=== PATIENT | male | born 1970 | race Caucasian/White ===

== ENCOUNTER 2024-02-09 09:01 | Emergency (ER) | payer BC, OTHER ==
--- OUTSIDE RECORDS SUMMARY | 2024-02-09 09:03 | XMS REPORT | Continuity of Care Document ---
Author Name Unknown Address [address] [facility] [address] [place] [address] [facility] [address] [facility] [place] [address] Care Team Providers Care Upscale Security Officer Name Role Phone Pcp, Patient Does Not Have A Primary Care Physic khanh Lab, Adc Fam Pob I Attending Clinician Unavailab Mary Guy Attending Clinician [phone] Doctor Unassigned, Victor Attending Clinician U kellyailable Neyda Dumas Attending Clinician [phone] NEYDA STANLEY Attending Clinician Unavailable Payers Payer Name Policy Type Policy Number Effective Date Expirati on Date Source [facility] PPO/POS [id number] 2019 00:00:00 Allergies, Adverse Reactions, Alerts Allergy Name Allergy Type Status Severity Reaction(s) Onset Date Inactive Date Treating Clinician Comments Source NO KNOWN ALLERGIE S Drug Class Active [facility] Social History Social Habit Start Date Stop Date Quantity Comments Source Sexual orientation U [facility] Exposure to SARS-CoV-2 (event) 2019-08-23 00:00:00 2019-09-22 13:02:00 Not sure [facility] Sex Assigned At 1970 00:00:00 1970 00:00:00 [facility] Smoking Status Start Date Stop Date Source Tobacco smoking consumption unknown [facility] Encounters Start Date/Time End Date/Time Encounter Type Admission Type Attending [facility] Care Department Encounter ID Source 2020-03-01 09:20:00 2020-03-01 09:20:00 Outpatient R [facility] [id number] [facility] 2020-03-01 08:58:53 2020-03-01 09:18:53 Laboratory Only Lab, [facility] Pob I [facility] [address] 1..[id number] [facility] 2019-09-23 00:00:00 2019-09-23 00:00:00 Patient Secure Msg Doctor Unassigned, Victor [facility] 1..840.114 [id number] [facility] 2019-09-22 13:01:16 2019-09-22 13:10:43 Laboratory Only Lab, [facility] Brianb Yokasta Hayesthia [facility] [address] 1..[id number] [facility] 2019-09-22 13:00:00 2019-09-22 13:00:00 Outpatient R NEYDA STANLEY [facility] [id number] [facility]
[2024-02-09] MEDS ORDERED: ONDANSETRON 4 MG/2 ML VIAL ONE (09:26)
[2024-02-09] MEDS ORDERED: MORPHINE 4 MG/ML SYR ONE (09:26)
[2024-02-09 09:52] LABS: Absolute Lymphocytes (CBC) 1.3 K/uL (0.7-4.9); Absolute Monocytes 0.6 K/uL (0.1-1.3); Absolute Neutrophil 13.9 K/uL (1.8-8.0); Basophils % 0.3 % (0-1.3); Eosinophils % 0.1 % (0-4.4); Hematocrit 46.2 % (39.6-49.0); Hemoglobin 15.6 g/dL (13.6-17.9); Lymphocytes % 8.5 % (15.3-44.8); MCH 29.3 pg (27.0-35.0); MCHC 33.8 g/dL (32.0-36.0); MCV 86.6 fL (80-100); Monocytes % 3.5 % (3.3-12.3); Neutrophils % 87.6 % (41.7-73.7); Platelets 367 thou/uL (152-406); RBC Red Blood Cell Count 5.34 M/uL (4.33-5.43); Red Cell Distribution Width 13.5 % (12.1-15.2)
[2024-02-09 09:55] LABS: Albumin 4.2 g/dL (3.4-5.0); Albumin/Globulin Ratio 1.1 (1.1-1.8); Anion Gap 10.9 mEq/L (5.0-15.0); Bilirubin Total 0.7 mg/dL (0.2-1.0); Globulin 3.7 g/dL (2.3-3.5); Potassium 3.9 mEq/L (3.5-5.1); Protein, Total 7.9 g/dL (6.4-8.2)
[2024-02-09 10:34] LABS: Blood Morphology Comment NOT SEEN (NOT SEEN); Platelet Estimate ADEQ; White Blood Cell Scan OK (OK)
--- NOTE | 2024-02-09 10:44 | RAD REPORT ---
EXAMINATION: CT ABDOMEN AND PELVIS WITH CONTRAST CLINICAL INDICATION: possible incarcerated hernia;Abd pain TECHNIQUE: CT abdomen and pelvis was performed, after the administration of IV contrast[facility] Axial, sagittal and coronal reconstructions were obtained. One or more of the following dose reduction techniques were used: Automated exposure control, adjustment of the mA and k V according to patient size, and iterative reconstruction. Unless otherwise specified, incidental findings do not require dedicated imaging follow-up. COMPARISON: No prior exam. FINDINGS: LOWER CHEST: The visualized lung bases are clear. LIVER: Normal in size and contour. No focal lesion. Grossly unremarkable gallbladder. SPLEEN: Normal size. No focal lesion. PANCREAS: No mass, ductal dilation, or robert-pancreatic fluid. ADRENALS: Normal; no mass. KIDNEYS: Normal size and contour. No hydronephrosis. GASTROINTESTINAL TRACT: No evidence of free air, significant intra-abdominal free fluid, bowel obstru ction or abscess. There are a few mildly prominent small bowel loops present in the lower abdomen. APPENDIX: Normal appendix. LYMPH NODES: No lymphadenopathy. MUSCULOSKELETAL: No acute or suspicious osseous abnormality. ADDITIONAL FINDINGS: Multiple large fat-containing ventral hernias are seen superior to the umbilicus region. The largest is to the left of midline measuring at most 14 cm. These appear to only contain fat and do not demonstrate features of incarceration currently. IMPRESSION: There are multiple large fat-containing supraumbilical ventral hernias. These do not appear to be inc arcerated currently. There is some tethering anteriorly of small bowel and transverse colon however no bowel involvement is seen in the hernia sacs themselves. There is mildly prominent small bowel loo ps in the lower abdomen seen which do not meet CT criteria for obstruction.
--- NOTE | 2024-02-09 11:11 | EDPHYS ---
Physician Documentation [facility] Name: Haven Dixon Age: 53 yrs Sex: Male : 1970 Arrival Date: 02/09/2024 Time: 09:01 Bed 4 Private MD: ED Physician Nigel Alanis HPI: 02/08 11:08 This 53 yrs old Male presents to ER via Ambulatory with complaints of Abdominal Pain, rn Vomiting. 11:08 The patient presents to the emergency department with nausea, vomiting, abdominal pain. rn Onset: The symptoms/episode began/occurred last night. Possible causes: Hernia. The symptoms are aggravated by nothing. The symptoms are alleviated by nothing. Severity of symptoms: At their worst the symptoms were moderate in the emergency department the symptoms are unchanged. The patient has experienced similar episodes in the past. Patient reports pain at hernia on left side of abdomen with nausea and vomiting and abdominal pain. Began last night. Unable to reduce hernia this morning. Usually able to reduce it. Was not using his binder recently. No blood in stool. No fever. No trauma.. Historical: - Allergies: 09:20 No Known Allergies; kc6 - Home Meds: 09:20 None [Active]; kc6 - PMHx: 09:20 hernia; kc6 - PSHx: 09:20 hernia repair; kc6 - Immunization history:: Adult Immunizations up to date. - Infectious Disease History:: Denies. - Social history:: Smoking status: Patient denies any tobacco usage or history of. - Family history:: not pertinent. - Hospitalizations: : No recent hospitalization is reported. ROS: 11:08 Constitutional: Negative for fever, chills, and weight loss, Abdomen/GI: Positive for rn left-sided abdominal pain and hernia that cannot be reduced Exam: 11:08 Constitutional: This is a well developed, well nourished patient who is awake, alert, rn appears uncomfortable. Abdomen/GI: Soft, moderate-sized left ventral abdominal hernia with tenderness. No overlying skin changes. No peritoneal signs. Vital Signs: 09:19 BP 154 / 74; Pulse 64; Resp 16 S; Temp 98.1(O); Pulse Ox 99% on R/A; Weight 126.1 kg kc6 (R); Height 5 ft. 9 in. (R); Pain 8/10; 11:22 BP 144 / 70; Pulse 60; Resp 15; Pulse Ox 100% ; ko1 09:19 Body Mass Index 41.05 (126.10 kg, 175.26 cm) kc6 09:19 Pain Scale: Adult kc6 Procedures: 09:58 Performed Abdominal hernia reduction. Patient given 4 mg of morphine, placed in rn Trendelenburg position, constant pressure with successful reduction of ventral hernia.. MDM: 09:05 Medical Screening Exam initiated rn 11:08 Differential diagnosis: Nonspecific abd pain, diverticulitis, Bowel obstruction, rn incarcerated hernia, strangulated hernia. Data reviewed: vital signs, nurses notes, lab test result(s), radiologic studies, CT scan, and as a result, I will discharge patient. Counseling: I had a detailed discussion with the patient and/or guardian regarding the historical points, exam findings, and any diagnostic results supporting the discharge/admit diagnosis, lab results, radiology results, the need for outpatient follow up, to return to the emergency department if symptoms worsen or persist or if there are any questions or concerns that arise at home. Response to treatment: the patient's symptoms have markedly improved after treatment, and as a result, I will discharge patient. Special discussion: Based on the patient's Hx, exam, and Dx evaluation, there is no indication for emergent surgery or inpatient Tx. It is understood by the patient/guardian that if the Sx's persist or worsen they need to return immediately for re-evaluation. I discussed with the patient/guardian in detail that at this point there is no indication for admission to the hospital. It is understood, however, that if the symptoms persist or worsen the patient needs to return immediately for re-evaluation. Based on the history and exam findings, there is no indication for further emergent testing or inpatient evaluation. I discussed with the patient/guardian the need to see the general surgeon for further evaluation of the symptoms. ED course: Offered admission to hospital for possible hernia repair, patient declines states he is going to follow-up as an outpatient to try to get all hernias repaired at 1 time given might need an abdominal reconstruction versus doing multiple surgeries at different times. Successful hernia reduction in the emergency room with improvement of symptoms. No indication for emergent admission at this time.. 02/08 09:18 Order name: CBC with Diff; Complete Time: 10:57 rn 02/08 09:18 Order name: CMP; Complete Time: 10:57 rn 02/08 09:18 Order name: Lipase; Complete Time: 10:57 rn 02/08 10:35 Order name: CBC Smear Scan; Complete Time: 10:57 EDMS 02/08 09:18 Order name: CT Abd/Pelvis - IV Contrast Only; Complete Time: 10:57 rn 02/08 09:18 Order name: IV Saline Lock; Complete Time: 09:30 rn 02/08 09:18 Order name: Labs collected and sent; Complete Time: 09:30 rn Administered Medications: 09:31 Drug: Ondansetron IVP 4 mg IVP once; over 2 minutes Route: IVP; Site: right antecubital;kc6 09:46 Follow up: Response: No adverse reaction ko1 09:31 Drug: morphine IVP or IV 4 mg IVP once over 4 mins Route: IVP; Infused Over: 4 mins; kc6 Site: right antecubital; 09:46 Follow up: Response: No adverse reaction ko1 Disposition Summary: 02/09/24 11:11 Discharge Ordered Notes: Location: Home rn Problem: new rn Symptoms: have improved rn Condition: Stable rn Diagnosis - Ventral hernia without obstruction or gangrene rn Followup: rn - With: Private Physician - When: As needed - Reason: Recheck today's complaints, Re-evaluation by your physician Discharge Instructions: - Discharge Summary Sheet rn - Hernia, Adult rn - Ventral Hernia rn Forms: - Medication Reconciliation Form rn - Antibiotic edge burnisher uppers - Prescription Opioid Use rn - Patient Portal Instructions rn - Leadership Thank You Letter rn Signatures: Dispatcher [employer] EDMS Nigel Alanis MD MD rn Campbell, Kaitlyn, RN RN kc6 Yanique Damon RN ko1 Corrections: (The following items were deleted from the chart) 09:18 09:18 CBC+H.LAB.BRZ ordered. EDMS EDMS 09:18 09:18 COMPREHENSIVE METABOLIC PANEL+C.LAB.BRZ ordered. EDMS EDMS 09:18 09:18 LIPASE+C.LAB.BRZ ordered. EDMS EDMS 09:18 09:18 Abdomen Pelvis W Con+CT.RAD.BRZ ordered. EDMS EDMS
--- NOTE | 2024-02-09 11:11 | ER ---
Nurse's Notes [facility] Name: Haven Dixon Age: 53 yrs Sex: Male : 1970 Arrival Date: 02/09/2024 Time: 09:01 Bed 4 Private MD: Diagnosis: Ventral hernia without obstruction or gangrene Presentation: 02/08 09:19 Chief complaint: Patient states: n/v and LLQ pain since 2030 last night. denies kc6 diarrhea. states his last dose of zofran was at 0800 this AM with no relief. Coronavirus screen: At this time, the client does not indicate any symptoms associated with coronavirus-19. Ebola Screen: No symptoms or risks identified at this time. Initial Sepsis Screen: Does the patient meet any 2 criteria? No. Patient's initial sepsis screen is negative. Does the patient have a suspected source of infection? No. Patient's initial sepsis screen is negative. Risk Assessment: Do you want to hurt yourself or someone else? Patient reports no desire to harm self or others. Onset of symptoms was February 08, 2024. 09:19 Method Of Arrival: Ambulatory [facility] 09:19 Acuity: BISI 3 kc6 Historical: - Allergies: 09:20 No Known Allergies; kc6 - Home Meds: 09:20 None [Active]; kc6 - PMHx: 09:20 hernia; kc6 - PSHx: 09:20 hernia repair; kc6 - Immunization history:: Adult Immunizations up to date. - Infectious Disease History:: Denies. - Social history:: Smoking status: Patient denies any tobacco usage or history of. - Family history:: not pertinent. - Hospitalizations: : No recent hospitalization is reported. Screenin:21 [facility] ED Fall Risk Assessment (Adult) History of falling in the last 3 months, kc6 including since admission No falls in past 3 months (0 pts) Confusion or Disorientation No (0 pts) Intoxicated or Sedated No (0 pts) Impaired Gait No (0 pts) Mobility Assist Device Used No (0 pt) Altered Elimination No (0 pt) Score/Fall Risk Level 0 - 2 = Low Risk Oriented to surroundings, Maintained a safe environment. Abuse screen: Denies threats or abuse. Denies injuries from another. Nutritional screening: No deficits noted. Tuberculosis screening: No symptoms or risk factors identified. Assessment: 09:21 General: Appears in no apparent distress. uncomfortable, well groomed, well developed, kc6 Behavior is calm, cooperative, appropriate for age. Pain: Complains of pain in left lower quadrant Pain currently is 8 out of 10 on a pain scale. Pain began 1 day ago. Is continuous. Neuro: Level of Consciousness is awake, alert, obeys commands, Oriented to person, place, time, situation, Appropriate for age. Cardiovascular: Capillary refill < 3 seconds. Respiratory: Airway is patent Trachea midline Respiratory effort is even, unlabored, Respiratory pattern is regular, symmetrical. GI: Abdomen is round Pt is actively vomiting clear fluid, Last BM was February 08, 2024. Bowel sounds present X 4 quads. Abd is soft X 4 quads Abdomen is tender to palpation in left lower quadrant Reports lower abdominal pain, nausea, vomiting, Patient currently denies diarrhea. : No signs and/or symptoms were reported regarding the genitourinary system. EENT: No signs and/or symptoms were reported regarding the EENT system. Derm: Skin is intact, is healthy with good turgor, Skin is diaphoretic, Skin is pale, Skin temperature is cool. Musculoskeletal: No signs and/or symptoms reported regarding the musculoskeletal system. Circulation, motion, and sensation intact. Capillary refill < 3 seconds, Range of motion: intact in all extremities. Vital Signs: 09:19 BP 154 / 74; Pulse 64; Resp 16 S; Temp 98.1(O); Pulse Ox 99% on R/A; Weight 126.1 kg kc6 (R); Height 5 ft. 9 in. (R); Pain 8/10; 11:22 BP 144 / 70; Pulse 60; Resp 15; Pulse Ox 100% ; ko1 09:19 Body Mass Index 41.05 (126.10 kg, 175.26 cm) kc6 09:19 Pain Scale: Adult kc6 ED Course: 09:03 Patient arrived in ED. ra3 09:05 Nigel Alanis MD is Attending Physician. rn 09:19 Clarita Clemente RN is Primary Nurse. kc6 09:20 Triage completed. kc6 09:20 Arm band placed on. kc6 09:21 Patient has correct armband on for positive identification. Placed in gown. Bed in low kc6 position. Call light in reach. Side rails up X 1. Adult w/ patient. Pulse ox on. NIBP on. Door closed. Noise minimized. Lights dimmed. Pillow given. 09:21 Patient maintains SpO2 saturation greater than 95% on room air. kc6 09:30 CBC with Diff Sent. cc6 09:30 CMP Sent. cc6 09:30 Lipase Sent. cc6 09:30 Initial lab(s) drawn, by il, sent to lab. Inserted saline lock: 20 gauge in right cc6 antecubital area, using aseptic technique. Blood collected. Flushed with 10 mL NS. 10:15 CT Abd/Pelvis - IV Contrast Only In Process Unspecified. EDMS 11:16 Provided Education on: discharge. ko1 11:16 No provider procedures requiring assistance completed. IV discontinued, intact, ko1 bleeding controlled, No redness/swelling at site. Pressure dressing applied. Administered Medications: 09:31 Drug: Ondansetron IVP 4 mg IVP once; over 2 minutes Route: IVP; Site: right antecubital;[facility] 09:46 Follow up: Response: No adverse reaction ko1 09:31 Drug: morphine IVP or IV 4 mg IVP once over 4 mins Route: IVP; Infused Over: 4 mins; [facility] Site: right antecubital; 09:46 Follow up: Response: No adverse reaction ko1 Medication: 11:16 VIS not applicable for this client. ko1 Outcome: 11:11 Discharge ordered by . rn 11:22 Discharged to home ambulatory, with family, ko1 11:22 Condition: good 11:22 Discharge instructions given to patient, family, Instructed on discharge instructions, follow up and referral plans. Demonstrated understanding of instructions, follow-up care, 11:27 Patient left the ED. ko1 Signatures: Dispatcher [employer] EDMS Nigel Alanis MD MD rn Campbell, Kaitlyn, RN RN kc6 Yanique Damon RN RN ko1 Allyson Block ra3 Renuka Decker 6 Corrections: (The following items were deleted from the chart) 09:23 09:19 BP 154 / ???; Pulse 64bpm; Resp 16bpm; Spontaneous; Pulse Ox 99% RA; Temp 98.1F kc6 Oral; 126.1 kg Reported; Height 5 ft. 9 in. Reported; BMI: 41.0; Pain 8/10, Adult; kc6
[2024-02-09 11:43] VITALS: BP 154/74; TEMP 98.1; O2SAT 99
== END 2024-02-09 11:27 | disposition home or self-care (01) ==
LOC: ER 09:01
DX: K43.9 Ventral hernia without obstruction or gangrene (principal)
CPT/HCPCS: 85025; 36415; 83690; 80053; 74177; 96375; 96374; 99284; Q9967; J2405